=== PATIENT | female | born 1970 | race Asian ===

== ENCOUNTER → 2021-06-15 | Outpatient (CLI) | payer OTHER ==
--- NOTE | 2021-06-15 16:52 | RAD ---
Exam: Chest 2 views INDICATION: Short of air, chest pain TECHNIQUE: Frontal and lateral views the chest Comparisons: None FINDINGS: The cardiomediastinal silhouette and pulmonary vessels are within normal limits. The lung and pleural spaces are clear. IMPRESSION: No acute cardiopulmonary process. Electronically signed by: Tyrone Melgar MD (06/15/2021 4:49 PM) [facility]
== END ==
LOC: RAD 16:22
PROVIDERS: ATTEND Nurse Practitioner Family
DX: R06.02 Shortness of breath (principal); R07.9 Chest pain, unspecified; Z87.09 Personal history of other diseases of the respiratory system
CPT/HCPCS: 71046